=== PATIENT | female | born 1975 | race Asian ===

== ENCOUNTER 2017-05-17 14:11 | Inpatient (IN) | payer OTHER ==
[~2017-05-17] VITALS: Ht 162.6 cm; Wt 78.6 kg
[2017-05-17] MEDS ORDERED: LACTATED RINGERS 1,000 ML IV SCH (14:13)
[2017-05-17] MEDS ORDERED: OXYTOCIN 30U/ 0.9% NaCL 500ML 500 ML IV ONE (14:13)
[2017-05-17] MEDS ORDERED: OXYTOCIN 10 UNITS/ML, 1ML ONE (14:17)
[2017-05-17] MEDS ORDERED: MISOPROSTOL 200 MCG TABLET ONE (14:18)
[2017-05-17] MEDS ORDERED: NEWBORN KIT ONE (14:25)
[2017-05-17] MEDS ORDERED: SODIUM CITRATE/CITRIC ACID 30 ML UDC PO PRN (14:30)
[2017-05-17] MEDS ORDERED: ALUMINUM/MAG/SIMETHICONE 30 ML UDC PO PRN (14:30)
[2017-05-17] MEDS ORDERED: ONDANSETRON 2MG/ML, 2ML IVPush PRN (14:30)
[2017-05-17] MEDS ORDERED: FENTANYL PF 100 MCG/2ML IVPush PRN (14:30)
[2017-05-17] MEDS ORDERED: OXYTOCIN 10 UNITS/ML, 1ML IM ONE (14:30)
[2017-05-17] MEDS ORDERED: RHOGAM FROM BLOOD BANK 1 NOTE EA IM/IV ONE (15:00)
[2017-05-17] MEDS ORDERED: MAGNESIUM HYDROXIDE 8%, 30ML UDC PO PRN (15:00)
[2017-05-17] MEDS ORDERED: OXYcodone/APAP 5/325MG TABLET PO PRN (15:00)
[2017-05-17] MEDS ORDERED: MEASLES,MUMPS&RUBELLA VACC/PF 0.5 ML SQ-VACC PRN (15:00)
[2017-05-17] MEDS ORDERED: OXYcodone IR 5MG TABLET PO PRN (15:00)
[2017-05-17] MEDS ORDERED: CALCIUM CARBONATE 500 MG TAB.CHEW PO PRN (15:00)
[2017-05-17] MEDS ORDERED: PLEASE ENTER HEIGHT AND WEIGHT MC SCH ×2 (15:00→21:30)
[2017-05-17] MEDS ORDERED: MISOPROSTOL 200 MCG TABLET PR PRN (15:00)
[2017-05-17] MEDS ORDERED: ONDANSETRON 2MG/ML, 2ML IV PRN (15:00)
[2017-05-17] MEDS ORDERED: DOCUSATE 100 MG CAPSULE PO PRN (15:00)
[2017-05-17] MEDS ORDERED: DIPH,PERTUSS(ACELL),TET VAC/PF NC IM-VACC PRN (15:00)
[2017-05-17 15:11] LABS: BASOPHILS # (AUTO) 0.03 x10^3/uL (0-0.1); BASOPHILS % (AUTO) 0 % (0-1); EOSINOPHILS # (AUTO) 0.05 x10^3/uL (0-0.4); EOSINOPHILS % (AUTO) 0 % (1-7); LYMPHOCYTES # (AUTO) 1.33 x10^3/uL (1-3.4); LYMPHOCYTES % (AUTO) 11 % (22-44); MD NO; MEAN CORPUSCULAR HEMOGLOBIN 30.3 pg (27.0-34.8); MEAN CORPUSCULAR HGB CONC 33.4 g/dL (32.4-35.8); MEAN CORPUSCULAR VOLUME 90.7 fL (80-100); MEAN PLATELET VOLUME 8.1 fL (7.4-10.4); MONOCYTES % (AUTO) 5 % (2-9); NEUTROPHILS # (AUTO) 9.98 x10^3/uL (1.8-6.8); NEUTROPHILS % (AUTO) 83 % (42-75); PLATELET COUNT 260 x10^3/uL (130-400); RED BLOOD COUNT 4.87 x10^6/uL (3.82-5.3); RED CELL DISTRIBUTION WIDTH 16.5 % (9.6-15.2)
[2017-05-17] MEDS ORDERED: OXYcodone/APAP 5/325MG TABLET ONE (15:22)
[2017-05-17] MEDS ORDERED: IBUPROFEN 600 MG TABLET ONE (15:22)
[2017-05-17] MEDS: IBUPROFEN 600 MG TABLET PO PRN (15:24)
[2017-05-17 17:14] VITALS: BP 126/78
[2017-05-17] MEDS: OXYTOCIN 30U/ 0.9% NaCL 500ML 500 ML IV SCH (17:27)
[2017-05-17 21:05] VITALS: BP 121/86
[2017-05-17 22:24] LABS: BASOPHILS # (AUTO) 0.07 x10^3/uL (0-0.1); BASOPHILS % (AUTO) 0 % (0-1); EOSINOPHILS # (AUTO) 0.03 x10^3/uL (0-0.4); EOSINOPHILS % (AUTO) 0 % (1-7); LYMPHOCYTES # (AUTO) 2.28 x10^3/uL (1-3.4); LYMPHOCYTES % (AUTO) 15 % (22-44); MD NO; MEAN CORPUSCULAR HEMOGLOBIN 30.3 pg (27.0-34.8); MEAN CORPUSCULAR HGB CONC 33.3 g/dL (32.4-35.8); MEAN CORPUSCULAR VOLUME 90.9 fL (80-100); MONOCYTES # (AUTO) 1.21 x10^3/uL (0.2-0.8); MONOCYTES % (AUTO) 8 % (2-9); NEUTROPHILS # (AUTO) 11.71 x10^3/uL (1.8-6.8); NEUTROPHILS % (AUTO) 77 % (42-75); PLATELET COUNT 267 x10^3/uL (130-400); RED CELL DISTRIBUTION WIDTH 17.1 % (9.6-15.2)
[2017-05-18] MEDS: OXYTOCIN 30U/ 0.9% NaCL 500ML 500 ML IV SCH (00:34)
[2017-05-18 01:00] VITALS: BP 127/86
[2017-05-18 03:50] VITALS: BP 105/65
[2017-05-18] MEDS: IBUPROFEN 600 MG TABLET PO PRN (07:26)
[2017-05-18 07:32] VITALS: BP 123/87
[2017-05-18] MEDS ORDERED: PRENATAL VIT/IRON/FA 1 EACH TABLET PO SCH (09:00)
[2017-05-18] MEDS ORDERED: PREN1TAB60 PO (09:39)
[2017-05-18] MEDS ORDERED: IBUP-1222 PO (09:39)
[2017-05-18 12:30] VITALS: BP 118/78
== END 2017-05-18 16:03 | disposition home or self-care (01) | DRG 775 ==
LOC: LDOP 14:11 → LDIP 14:23 → 2NW 16:36
PROVIDERS: ADMIT Student in an Organized Health Care Education/Training Program; ATTEND Student in an Organized Health Care Education/Training Program
PROC: 10E0XZZ Delivery of Products of Conception, External Approach (ICD-10-PCS; principal; 2017-05-17)
PROC: 3E033VJ Introduction of Other Hormone into Peripheral Vein, Percutaneous Approach (ICD-10-PCS; 2017-05-17)
PROC: 3E0234Z Introduction of Serum, Toxoid and Vaccine into Muscle, Percutaneous Approach (ICD-10-PCS; 2017-05-17)
DX: O77.0 Labor and delivery complicated by meconium in amniotic fluid (principal); O99.354 Diseases of the nervous system complicating childbirth; O24.429 Gestational diabetes mellitus in childbirth, unspecified control; G43.909 Migraine, unspecified, not intractable, without status migrainosus; Z37.0 Single live birth; Z23 Encounter for immunization
CPT/HCPCS: 36415; 82803; 85025; 86850; 86900; J2590

== ENCOUNTER 2017-07-31 00:44 | Emergency (ER) | payer OTHER ==
[~2017-07-31] VITALS: Ht 160 cm; Wt 65.0 kg
[~2017-07-31 00:44] MED LIST: IBUP-1222 PO; PREN1TAB60 PO
[2017-07-31 01:21] LABS: BASOPHILS # (AUTO) 0.04 x10^3/uL (0-0.1); BASOPHILS % (AUTO) 0 % (0-1); EOSINOPHILS # (AUTO) 0.46 x10^3/uL (0-0.4); EOSINOPHILS % (AUTO) 4 % (1-7); LYMPHOCYTES # (AUTO) 2.03 x10^3/uL (1-3.4); LYMPHOCYTES % (AUTO) 16 % (22-44); MD NO; MEAN CORPUSCULAR HEMOGLOBIN 30.3 pg (27.0-34.8); MEAN CORPUSCULAR HGB CONC 33.6 g/dL (32.4-35.8); MEAN PLATELET VOLUME 7.8 fL (7.4-10.4); MONOCYTES # (AUTO) 0.75 x10^3/uL (0.2-0.8); MONOCYTES % (AUTO) 6 % (2-9); NEUTROPHILS # (AUTO) 9.39 x10^3/uL (1.8-6.8); NEUTROPHILS % (AUTO) 74 % (42-75); PLATELET COUNT 266 x10^3/uL (130-400); RED BLOOD COUNT 4.82 x10^6/uL (3.82-5.3); RED CELL DISTRIBUTION WIDTH 13.5 % (9.6-15.2)
[2017-07-31 01:30] LABS: ALANINE AMINOTRANSFERASE 91 U/L (12-78); ALBUMIN 3.8 g/dL (3.4-5.0); ANION GAP 9 mmol/L (5-15); CALCIUM 9.1 mg/dL (8.5-10.1); CHLORIDE 109 mmol/L (98-107); CREATININE 0.81 mg/dL (0.55-1.02)
[2017-07-31 01:31] LABS: SALICYLATE LEVEL < 1.7 mg/dL (2.8-20.0)
[2017-07-31 01:32] LABS: ALKALINE PHOSPHATASE 113 U/L (45-117); BILIRUBIN,TOTAL 0.3 mg/dL (0.2-1.0); TOTAL PROTEIN 7.9 g/dL (6.4-8.2)
[2017-07-31 01:35] LABS: ACETAMINOPHEN < 2 mcg/mL (10-30)
[2017-07-31 01:39] LABS: AMPHETAMINE SCREEN, URINE Negative (Negative); BARBITURATE SCREEN, URINE Negative (Negative); BENZODIAZEPINE SCREEN, URINE Negative (Negative); CANNABINOID SCREEN, URINE Negative (Negative); COCAINE SCREEN, URINE Negative (Negative); METHADONE SCREEN, URINE Negative (Negative); OPIATE SCREEN, URINE Negative (Negative)
[2017-07-31 04:36] VITALS: BP 122/76
[2017-07-31] MEDS ORDERED: ACETAMINOPHEN 500 MG TABLET ONE (04:53)
== END 2017-07-31 06:57 | disposition home or self-care (01) ==
LOC: ED 01:35
DX: F32.9 Major depressive disorder, single episode, unspecified (principal); R44.1 Visual hallucinations
CPT/HCPCS: 36415; 80053; 80307; 80329; 85025; 99284; G0480

== ENCOUNTER 2018-02-17 06:18 | Emergency (ER) | payer OTHER ==
[~2018-02-17] VITALS: Ht 162.6 cm; Wt 61.1 kg
--- NOTE | 2018-02-17 06:35 | NUR ---
PT. C/O LEFT CP RADIATING TO LEFT UPPER BACK STARTING AT 1900 LAST NIGHT. DENIES ABD PAIN, N/V/D, SWEATING. PAIN BECAME WORSE AT 0500 ACCOMPANIED BY SOB; WORSE WITH DEEP BREATHING. PT. REPORTS PRODUCTIVE COUGH X 1 WEEK. DENIES DENIES ANY PAST MEDICAL HX.
[2018-02-17] MEDS ORDERED: KETOROLAC 30 MG/1 ML ONE (06:44)
--- NOTE | 2018-02-17 06:56 | NUR ---
REPORT RECEIVED, CARE ASSUMED.
[2018-02-17] MEDS ORDERED: KETOROLAC 30 MG/1 ML IM ONE (07:00)
[2018-02-17] MEDS ORDERED: KETOROLAC 30 MG/1 ML IVPush ONE (07:00)
[2018-02-17] MEDS ORDERED: SODIUM CHLORIDE FLUSH 10ML SYR IVF ONE (07:00)
--- NOTE | 2018-02-17 07:01 | NUR ---
PT SITTING UP ON GURNEY, NO ACUTE DISTRESS NOTED. SR PER MONITOR. AUTO BP AND PULSE OX IN PLACE. LABS DRAWN BY ANNEALING TORCH OPERATOR. PT WITH PAIN CURRENTLY 07/18. PT AWARE OF WAITING FOR TEST RESULTS. NO NEEDS EXPRESSED AT THIS TIME.
[2018-02-17 07:11] LABS: BASOPHILS # (AUTO) 0.08 x10^3/uL (0-0.1); BASOPHILS % (AUTO) 1 % (0-1); EOSINOPHILS # (AUTO) 0.26 x10^3/uL (0-0.4); EOSINOPHILS % (AUTO) 2 % (1-7); LYMPHOCYTES # (AUTO) 2.27 x10^3/uL (1-3.4); LYMPHOCYTES % (AUTO) 21 % (22-44); MD NO; MEAN CORPUSCULAR HEMOGLOBIN 30.8 pg (27.0-34.8); MEAN CORPUSCULAR HGB CONC 33.7 g/dL (32.4-35.8); MEAN CORPUSCULAR VOLUME 91.3 fL (80-100); MEAN PLATELET VOLUME 7.4 fL (7.4-10.4); MONOCYTES # (AUTO) 0.89 x10^3/uL (0.2-0.8); MONOCYTES % (AUTO) 8 % (2-9); NEUTROPHILS # (AUTO) 7.19 x10^3/uL (1.8-6.8); NEUTROPHILS % (AUTO) 67 % (42-75); PLATELET COUNT 438 x10^3/uL (130-400); RED CELL DISTRIBUTION WIDTH 12.9 % (9.6-15.2)
[2018-02-17 07:18] LABS: ALBUMIN 3.3 g/dL (3.4-5.0); ANION GAP 6 mmol/L (5-15); CALCIUM 8.5 mg/dL (8.5-10.1); CHLORIDE 108 mmol/L (98-107)
[2018-02-17 07:22] LABS: TROPONIN I < 0.015 ng/mL (0.000-0.045)
[2018-02-17 08:12] VITALS: BP 103/73
--- NOTE | 2018-02-17 08:12 | NUR ---
TASK RN: Discharge instructions discussed with patient, verbalizes understanding, questions answered. Prescription provided to patient with instruction for use. Patient ambulates with steady gait to discharge desk with her in no acute distress.
== END 2018-02-17 08:14 | disposition home or self-care (01) ==
LOC: ED 07:17
DX: R07.89 Other chest pain (principal); R09.1 Pleurisy; F32.9 Major depressive disorder, single episode, unspecified; Z86.32 Personal history of gestational diabetes
CPT/HCPCS: 36415; 71046; 80048; 82040; 84484; 85025; 85379; 93005; 96372; 99284; J1885